=== PATIENT | female | born 1995 | race Caucasian/White ===

== ENCOUNTER 2025-05-30 08:46 | Outpatient (CLI) | payer BC, SELFPAY ==
--- OUTSIDE RECORDS SUMMARY | 2003-09-21 19:00 | XMS_ITS | Continuity of Care Document ---
Author Name [facility] Address [address] [place] [address] Organization [facility] Care Team Providers Care Manager Workers Compensation Name Role Phone [facility] Unavailable Unavailable Problems Problem Status Onset Date Problem Type Date of Resolution Comments Source Eczema (disorder) Inactive Condition Urinary tract infectious disease (disorder) Resolved Condition Generalized anxiety disorder (disorder) Active Condition No current problems or disability (context-dependen t category) Active Condition <sup>1</sup>Ad ded by discern rule CLIN_UH_PROB_N KP_CHILD. If the problem list is empty the rule adds No Known Problems to a patient's chart, age 18 and under, when an outpatient visit occurs. Palpitations Active Diagnosis Encounters Location Location Details Encounter Type Encounter Number Reason For Visit Attending Provider ADM Date DC Date Status Source [facility] OUTPATIENT [id number] DEPO, FAXING RECORD TO SAVITA COLON, [place] Oconnell Cancel [facility] OUTPATIENT [id number] F/U ANXIETY [facility] [id number] F/U ANXIETY, HFY [facility] OUT[facility] [id number] DEPO [facility] [id number] DEPO POLLY [facility] [id number] [facility]
--- OUTSIDE RECORDS SUMMARY | 2025-05-30 08:59 | XMS_ITS | Clinical Summary ---
Author Organization [facility] Address [facility] [place] [address] Care Team Providers Care Office Runner Name Role Phone Unavailable Primary Care Provider Unavailabl e Social History Tobacco Use Types Packs/Day Years Used Date Smoking Tobacco: Never Assessed Comments Unknown Sex and Gender Information Value Date Recorded Sex Assigned at Not on file Legal Sex Female 4:16 PM CDT Gender Identity Not on file Sexual Orientation Not on file Plan of Treatment Health Maintenance Due Date Last Done Comments Annual Physical 01/22/1999 Hepatitis C 01/22/2014 DTaP, Tdap and Td Vaccines ( 1 - Tdap) 01/22/2015 Hepatitis B Vaccines (1 of 3 - 19+ 3-dose series) 01/22/2015 Cervical Cancer Screening Pa p Smear (Age 21 to 29) Every 3 Years 11/13/2022 11/13/2019 Cervical Cancer Screening 11/13/2022 HPV Vaccines (1 - 3-dose SCD M series) 01/22/2023 COVID-19 Vaccine (2023-2 5 season) 2025 Meningococcal B Vaccine Aged Out No l onger eligible based on patient's age to complete this topic Meningococcal Vaccine Aged Out No reji laura eligible based on patient's age to complete this topic Pneumococcal Vaccine: Pediat rics (0 to 5 Years) and At-Risk Patients (6 to 49 Years) Aged Out No longer eligi ble based on patient's age to complete this topic RSV Immunizations Under 20 Months Aged Out No longer eligible based on patient's age to complete this topic Procedures Procedure Name Priority Date/Time Associated Diagnosis Comments CYTOPATH CERV/VAG THIN LAYER Routine 11/13/2019 12:00 AM SAL[employer]ERSON [employer] from Last 3 Months or Most Recently Relevant to Health Maintenance Results * Cytopath Cerv/Vag Thin Layer (11/13/2019 12:00 AM SALESPERSON [employer]) COPATH REPORT [address] [address] [phone] Department of Pathology Pathology Report Gynecological Cytology Report Patient Name: RALPH HENLEY : 1995 (Age: 24) Location: [facility] Gender: F Collected Date: 11/13/2019 Med Rec #: [id number] Date Received: 11/15/2019 Date Reported: 11/15/2019 Provider: MOUNIKA HWANG CNM Other Case Numbers [id number] Final Cytologic Diagnosis Satisfactory for evaluation. Endocervical component present. Negative for Intraepithelial Lesion or Malignancy. Electronically Signed Out By Yahir Hill Source of Specimen(s) Cervical/Endocervi braulio - Thin Prep Clinical History Screening, last Pap 07/18/2017 wnl. Z12.4 Date of Last Menstrual Period: 05/01/2014 Billing Fee Code(s): A: 89016 [facility] 11/13/2019 11/15/2019 8:3 3 AM [employer] Comment:CERVICAL/ENDOCERVICA L - THIN PREP us Mounika Dobbs CNM PATHOLOGY/CYTOLOGY ORDERABLE S Final Result [facility] () [facility] [address] [place] [address], [place] [phone] from Last 3 Months or Most Recently Relevant to Health Maintenance Insurance [facility] [address] [id number]
[2025-05-30 09:21] LABS: Hematocrit 42.4 % (37.0-47.0); Hemoglobin 14.2 g/dL (12.0-15.0); Immature Granulocyte Percent A 0.4 % (0-0.5); Lymphocytes Absolute Auto 1.71 K/mm3 (0.9-3.2); Mean Corpuscular HGB Conc 33.5 g/dl (32-36); Mean Corpuscular Hemoglobin 30.1 pg (26-34); Mean Corpuscular Volume 90.0 fl (80-100); Nucleated Red Blood Cells Absolute Auto 0.000 K/mm3 (0.0-0.012); Nucleated Red Blood Cells Perc 0.0 % (0.0-0.2); Platelet Count Result 199 k/mm3 (150-375); Red Blood Count 4.71 M/mm3 (4.2-5.4); White Blood Count 4.9 K/mm3 (4.5-10.0)
[2025-05-30 09:40] LABS: Alanine Aminotransferase 14 U/L (6-35); Albumin Level 4.4 g/dL (3.5-5.1); Alkaline Phosphatase 48 U/L (38-126); Anion Gap 7 mmol/L (4-12); Aspartate Amino Transferase 26 U/L (14-36); Bilirubin,Total 0.4 mg/dL (0.2-1.3); Blood Urea Nitrogen 11 mg/dL (7-17); Calcium 9.1 mg/dL (8.4-10.2); Carbon Dioxide 24 mmol/L (22-30); Chloride 107 mmol/L (98-107); Cholesterol 215 mg/dL (0-200); Estimated Glomerular Filt Rate > 60; Glucose 100 mg/dL (65-110); HDL Direct 54 mg/dL; Potassium 3.7 mmol/L (3.4-5.0); Sodium 138 mmol/L (137-145); Total Protein 7.5 g/dL (6.3-8.2); Triglycerides 54 mg/dL (<150)
[2025-05-30 09:52] LABS: Beta HCG Quantitative < 2.39 mIU/ML
[2025-05-30 09:58] LABS: Hemoglobin A1C 5.0 % (<5.7)
[2025-05-30 10:15] LABS: Thyroid Stimulating Hormone Reflex 0.916 uIU/mL (0.465-4.68)
[2025-05-31 11:09] LABS: FSH 6.4 mIU/mL (.); LH 10.0 mIU/mL (.)
[2025-06-03 19:08] LABS: Estradiol, Sensitive 32.4 pg/mL (.)
[2025-06-05 23:07] LABS: Free Testosterone (Direct) 1.5 pg/mL (0.0-4.2)
== END 2025-05-30 08:47 | disposition home or self-care (01) ==
LOC: ANHLAB 08:49
PROVIDERS: PCP Pediatrics; Visit Provider Obstetrics & Gynecology
DX: N92.6 Irregular menstruation, unspecified (principal); R63.5 Abnormal weight gain; L70.9 Acne, unspecified
CPT/HCPCS: 36415; 80053; 80061; 82627; 82670; 83001; 83002; 83036; 83498; 83525; 83527; 84144; 84146; 84402; 84403; 84443; 84702; 85025